=== PATIENT | male | born 1970 | race Caucasian/White ===

== ENCOUNTER 2019-04-08 17:40 | Emergency (ER) | payer MEDICAID ==
[~2019-04-08] VITALS: Ht 175.3 cm; Wt 117.9 kg
[2019-04-08 18:00] VITALS: BP 106/68
[2019-04-08] MEDS ORDERED: CHLO15MO2 SWSP (18:13)
[2019-04-08] MEDS ORDERED: PENI500T PO (18:13)
[2019-04-08] MEDS ORDERED: ACET-704 PO (18:13)
--- NOTE | 2019-04-08 18:13 | PHYS DOC ---
Past Medical History Past Medical History: Diabetes-Type II, Hypertension, SC, Renal Disease ( impaired renal function) Additional Past Medical Histor: CELLULITIS,RIGHT EYE BLINDNESS,IBS (ROGERS BELLA APRN) Past Surgical History: Other Additional Past Surgical Histo: ANGIOPLASTY X2 STENTS, (ROGERS BELLA APRN) Alcohol Use: None Drug Use: None (ROGERS BELLA APRN) Attending Signature I have participated in the care of this patient and I have reviewed and agree with all pertinent clinical information above including history, exam, and recommendations. (LEONOR CHI MD) Adult General Chief Complaint Chief Complaint: DENTAL PROBLEM HPI HPI Patient is a 48 year old male, accompanied by his , who presents to the emergency department with complaints of left upper dental pain for the last 2 days. He reports a history of dental decay and bad teeth. Patient denies any fever, cough, shortness of breath, wheezing, abdominal pain, nausea, vomiting, diarrhea, or sore throat. He states that the pain shoots to his left ear at times. Patient states he has been taking Tylenol, ibuprofen, and aspirin at home with little relief of his symptoms. He currently rates his pain a 10 out of 10 on the pain scale, he states that the pain is worse with eating. All other ROS is neg unless otherwise noted in HPI. (ROGERS BELLA APRN) Review of Systems Review of Systems See Above (ROGERS BELLA APRN) Allergies Allergies Allergies Coded Allergies Type Severity Reaction Last Updated Verified No Known Drug Allergies 04/08/19 No (LEONOR CHI MD) Physical Exam Physical Exam See Above Constitutional: Well developed, well nourished, no acute distress, non-toxic a ppearance, obese. [] HENT: Normocephalic, atraumatic, bilateral external ears normal, bilateral TMs normal, posterior pharynx normal, oropharynx moist, no oral exudates, nose normal; gingival edema and erythema and left upper quadrant with several broken teeth and dental caries no visible pustule or abscess [] Eyes: PERRLA, EOMI, conjunctiva normal, no discharge. [] Neck: Normal range of motion, no tenderness, supple, no stridor. [] Lungs & Thorax: Respirations even and unlabored, no retractions, no respiratory distress Skin: Warm, dry, no erythema, no rash. [] Extremities: No cyanosis, ROM intact Neurologic: Alert and oriented X 3, no focal deficits noted. [] Psychologic: Affect normal, judgement normal, mood normal. [] (ROGERS BELLA APRN) Current Patient Data Vital Signs Vital Signs Date Time Temp Pulse Resp B/P (MAP) Pulse Ox O2 Delivery O2 Flow Rate FiO2 04/08/19 18:00 98.7 102 20 106/68 (81) 100 Room Air 98.7 (LEONOR CHI MD) EKG EKG [] (ROGERS BELLA APRN) Radiology/Procedures Radiology/Procedures [] (ROGERS BELLA APRN) Course & Med Decision Making Course & Med Decision Making Pertinent Labs and Imaging studies reviewed. (See chart for details) [] (ROGERS BELLA APRN) Dragon Disclaimer Dragon Disclaimer This electronic medical record was generated, in whole or in part, using a voice recognition dictation system. (ROGERS BELLA APRN) Departure Departure Impression: Primary Impression: Dentalgia Additional Impressions: Infected dental caries Gingivitis, acute Disposition: 01 HOME, SELF-CARE Condition: STABLE Referrals: JORGE LOPEZ MD (PCP) Patient Instructions: Dental Caries, Dental Pain, [id number], Gingivitis, Eas y-to-Read Additional Instructions: Fill prescription(s) and use as directed. Follow up with dentist using the referral list provided. Return to the ER if symptoms worsen. Scripts Chlorhexidine Gluconate (PERIDEX) 15 Ml Mouthwash 15 ML SWSP BID for 7 Days, #473 ML 0 Refills [place] teeth before using to prevent staining. Swish for approximately 30 seconds before spitting. Prov: ROGERS BELLA APRN 04/08/19 Penicillin V Potassium (PENICILLIN V POTASSIUM) 500 Mg Tablet 1 TAB PO QID for 10 Days, #40 TAB 0 Refills Prov: ROGERS BELLA APRN 04/08/19 Acetaminophen With Codeine (TYLENOL WITH CODEINE #3 TABLET) 1 Each Tablet 1 TAB PO Q6-8HRS PRN for pain MDD 4 Tablet(s) for 3 Days, #6 TAB 0 Refills Prov: ROGERS BELLA APRN 04/08/19 Problem Qualifiers ROGERS BELLA APRN Apr 08, 2019 18:13 LEONOR CHI MD Apr 08, 2019 18:23
== END 2019-04-08 18:25 | disposition home or self-care (01) ==
LOC: ER 17:40
DX: K04.7 Periapical abscess without sinus (principal); K05.00 Acute gingivitis, plaque induced; K08.89 Other specified disorders of teeth and supporting structures; E11.9 Type 2 diabetes mellitus without complications; I10 Essential (primary) hypertension; I25.2 Old myocardial infarction; Z95.5 Presence of coronary angioplasty implant and graft
CPT/HCPCS: 99283